=== PATIENT | female | born 1975 | race Caucasian/White ===

== ENCOUNTER 2021-01-06 10:11 | Emergency (ER) | payer MEDICAID, SELFPAY ==
[2021-01-06 10:11] VITALS: BP 162/101; PULSE 91; RESP 18; TEMP 36; O2SAT 100; BMI 41.5
--- NOTE | 2021-01-06 10:29 | CT_ITS ---
STUDY: CTA OF THE BRAIN REASON FOR EXAM: Female, 45 years old. Right sided pain RADIATION DOSAGE (If Supplied By Facility): CTDIvol = ( 28.57 ) mGy, DLP = ( 1310.64 ) mGycm TECHNIQUE: CT angiography was performed with a multi-detector CT scanner. Data acquisition was obtained from the skull base through the vertex following intravenous administration of IV 100mL Isovue-300. MIP images were reconstructed from the axial data set. Post-processing of the angiographic images was performed, with multiplanar reformation and 3D reconstruction. Individualized dose optimization techniques were used for this CT. COMPARISON: None. FINDINGS: Normal bilateral petrous carotid arteries. Normal right cavernous carotid artery with a normal supraclinoid bifurcation. Normal left cavernous carotid artery with a normal supraclinoid bifurcation. Normal right A1 segments of the anterior cerebral artery. Normal left A1 segments of the anterior cerebral artery. Normal intact anterior communicating artery (ACOM). Normal bilateral A2 segments of the anterior cerebral arteries. Normal right M1 and M2 segments of the middle cerebral arteries, with a normal M1 bifurcation. Normal left M1 and M2 segments of the middle cerebral arteries, with a normal M1 bifurcation. Normal right posterior communicating artery (PCOM). Normal left posterior communicating artery (PCOM). Normal bilateral vertebral arteries. Normal basilar artery with a normal basilar bifurcation. The visualized bilateral superior cerebellar (SCA) arteries are normal. Normal bilateral P1, P2 and visualized P3 segments of the posterior cerebral arteries. There is no demonstrated aneurysm of the [place]. There is no demonstrated abnormality of the visualized brain. Small left vertebral artery. CT/CTA Head W/WO Contrast IMPRESSION: Normal [place] without a demonstrated aneurysm or hemodynamically significant stenosis. Electronically Signed: Hebert Cordova MD at 11:09 EST , Service support ,
--- NOTE | 2021-01-06 10:30 | ED.VIS.GEN ---
History of Present Illness Chief Complaint: Dizziness Detail of Chief Complaint: Sharp right-sided head pain Informant: Patient Onset: Weeks Context: Gradual Onset Timing: Intermittent, Lasts - Less than 1 minute Narrative: Patient presents with intermittent episodes of sharp right-sided head pain. She states the symptoms of been ongoing for a month or so. The pain is brief lasting less than 1 minute. She states when the pain occurs she will have some nausea and dizziness that persist for a slight time period. Patient reports being seen at [facility] approximately 2 weeks ago. She had a head CT that she was told had an abnormality but per her report was not given any further follow-up instructions. Patient states she continues to have symptoms and has noted increased frequency. - Past Medical History (1) Anxiety disorder Status: Chronic (2) Essential hypertension Status: Chronic Past Medical History - Allergies and Home Meds Allergies/Adverse Reactions: Allergies egg Allergy (Verified 01/06/21 10:11) Other Primary Care Physician: Denisse Valdez MD [Primary Care Provider] - Prior records reviewed: Yes Lives: Spouse/ Significant Other Smoking Status: Current every day smoker Review of Systems General: Denies: Chills, Fever Eyes: Denies: Visual changes - bilaterally ENT: Denies: Bilateral ear pain Cardiovascular: Denies: Chest pain Respiratory: Denies: Dyspnea, Cough Gastrointestinal: Reports: Nausea. Denies: Abdominal pain, Vomiting, Diarrhea Musculoskeletal: Denies: Swelling, Extremity Pain Neurological: Reports: Headache Psych: Denies: Depression Hematologic: Denies: Easy bruising, Easy bleeding Allergy: Denies: Uticaria Physical Exam Vital Signs/Narrative: Vital Signs Temp Pulse Resp BP Pulse Ox 01/06/21 10:11 96.8 F L 91 18 162/101 H 100 Inital Vital Signs reviewed: Yes General: Well nourished, Well developed Head: Normocephalic ENT: Moist mucous membranes Neck: Supple, - - No C-spine tenderness. Cardiovascular: Regular rate, Regular rhythm Respiratory: No distress, CTA bilaterally Abdomen: Soft, Nontender, Normal bowel sounds Back: Nontender Extremities: Nontender, No edema Skin: Normal color, No rash Neurological: Alert, Oriented x3, Normal Strength, Normal Sensation Psychological: Normal affect Diagnostic/Tx/Re-eval Impressions Head CTA 01/06/21 10:29 IMPRESSION: Normal [place] without a demonstrated aneurysm or hemodynamically significant stenosis. Electronically Signed: Hebert Cordova MD at 11:09 EST , Service support , 01/06/21 10:29 CTA Head W/WO Contrast [CT] Stat Laboratory Results 01/06/21 01/06/21 10:40 10:40 WBC 8.4 RBC 4.69 Hgb 14.5 Hct 41.3 MCV 88.1 MCH 30.9 MCHC 35.1 RDW Std Deviation 43.2 RDW Coeff of Ciro 14.1 Plt Count 196 MPV 10.3 Immature Gran % (Auto) 0.400 Neut % (Auto) 55.7 Lymph % (Auto) 33.8 [place] % (Auto) 7.3 Eos % (Auto) 2.4 Baso % (Auto) 0.4 Absolute Neuts (auto) 4.7 Absolute Lymphs (auto) 2.82 Nucleated RBC % 0 Sodium 139 Potassium 4.2 Chloride 109 H Carbon Dioxide 26.0 Anion Gap 4 L BUN 9 Creatinine 1.01 Estim Creat Clear Calc 64.63 Est GFR (MDRD) Af Amer 77 Est GFR (MDRD) Non-Af 63 BUN/Creatinine Ratio 8.9 L Glucose 106 Calcium 8.8 - Medical Decision Making Patient was given Toradol and prednisone on arrival. CT scan from [place] was reviewed. There is evidence of a 6 mm frontal calcified meningioma. This appeared to be unchanged when compared to a prior study from 2013. Because the patient did not have a CTA, that was obtained on this visit. There is no evidence of aneurysm. I did discuss with the patient that the nature of her pain, sharp, stabbing, quick onset and offset, is more consistent with nerve irritation. We will start her on anti-inflammatories and a steroid taper. I did advise her that if the symptoms continue other medications such as gabapentin or Lyrica may be able to help her. She was encouraged to follow-up with her primary care physician in 1 to 2 weeks. ED Disposition - Plan for ED Patient: Disposition: Home or Assisted Living Diagnosis: Paresthesia, Nerve root irritation Instructions: ED Paraesthesias Prescriptions: Prednisone [Deltasone] 60 mg PO DAILY #15 tab Transmission Status: Pending to [id number] Naproxen [Naprosyn] 500 mg PO BID PRN PRN #20 tab PRN Reason: Pain Score 4-10 Transmission Status: Pending to [id number] Referrals: Denisse Valdez MD [Primary Care Provider] - 1-2 Weeks
[2021-01-06] MEDS: Ketorolac 30 MG/ML Syringe IV (10:42)
[2021-01-06] MEDS: predniSONE 20 MG Tablet 60 MG PO (10:42)
[2021-01-06 10:48] LABS: Absolute Lymphocyte Count 2.82 X10^3/uL (0.83-4.51); Absolute Neutrophil Count 4.7 X10^3/uL (2.0-7.7); Basophil# 0.03 X10^3/uL; Basophil% 0.4 % (0-1); Eosinophils% 2.4 % (0-5); Hematocrit 41.3 % (37-47); Hemoglobin 14.5 g/dL (12.0-15.0); Lymphocyte # 2.82 X10^3/ul (4.0); Lymphocyte % 33.8 % (19-41); Mean Corp Hgb Conc 35.1 g/dL (32-36); Mean Corpuscular Hgb 30.9 pg (27.0-32.0); Mean Corpuscular Volume 88.1 fL (81-99); Mean Platelet Vol. 10.3 fl (6.2-12.0); Monocyte# 0.61 X10^3/uL; Monocyte% 7.3 % (0-10); NRBC Flagged by Analyzer 0 % (0-5); Neutrophil # 4.66 X10^3/uL (2.7-7.7); Neutrophil % 55.7 % (47-70); Platelet Count 196 K/mm3 (150-450); RBC Distribution Width CV 14.1 % (11.6-14.6); RBC Distribution Width SD 43.2 fl (35.1-43.9); Red Blood Count 4.69 M/mm3 (4.2-5.4); White Blood Count 8.4 K/mm3 (4.4-11.0)
[2021-01-06 11:01] LABS: Anion Gap 4 (5-15); BUN 9 mg/dL (7-18); BUN/Creat Ratio 8.9 RATIO (10-20); Calcium,Total 8.8 mg/dL (8.5-10.1); Chloride 109 mmol/L (98-107); Creatinine, Serum 1.01 mg/dL (0.55-1.02); EST Glomerular Filtration Rate 63 mL/min (>60); Est Glom Filt Rate - Afr Amer 77 mL/min (>60); Estimated Creatinine Clearance 64.63 ml/min; Glucose 106 mg/dL (74-106); Potassium 4.2 mmol/L (3.5-5.1); Sodium Level 139 mmol/L (136-145)
[2021-01-06 12:21] VITALS: BP 130/71; PULSE 83; RESP 15; O2SAT 100
== END 2021-01-06 12:21 | disposition home or self-care (01) ==
PROVIDERS: Emergency Provider Emergency Medicine; PCP Family Medicine
DX: R20.2 Paresthesia of skin (principal); I10 Essential (primary) hypertension; F17.200 Nicotine dependence, unspecified, uncomplicated; Z79.899 Other long term (current) drug therapy
CPT/HCPCS: 70496; 80048; 85025; 96374; 99284; Q9967; A4216

== ENCOUNTER → 2022-06-14 | Outpatient (CLI) | payer MEDICAID, SELFPAY ==
[2022-06-20 12:35] LABS: Anti-Histone Abs 0.3 Units (0.0-0.9); Anti-Nuclear Antibody Test Negative (.); Anti-dsDNA Ab 1 IU/mL (0-9)
== END | disposition home or self-care (01) ==
LOC: MTLAB 13:03
PROVIDERS: PCP Family Medicine; Referring Provider Physician Assistant; Visit Provider Physician Assistant
DX: C44.529 Squamous cell carcinoma of skin of other part of trunk (principal); D48.5 Neoplasm of uncertain behavior of skin; L57.8 Other skin changes due to chronic exposure to nonionizing radiation; B36.8 Other specified superficial mycoses; D22.5 Melanocytic nevi of trunk; L85.8 Other specified epidermal thickening; L02.425 Furuncle of right lower limb; L02.426 Furuncle of left lower limb; L02.222 Furuncle of back [any part, except buttock and flank]; L30.9 Dermatitis, unspecified; L71.8 Other rosacea
CPT/HCPCS: 36415; 86038; 86225; 86235

== ENCOUNTER → 2024-03-02 | Outpatient (CLI) | payer MEDICAID, SELFPAY ==
--- NOTE | 2024-03-02 07:04 | MRI_ITS ---
HISTORY: Radiculopathy, left leg and foot numbness. TECHNIQUE: Multiplanar and multisequence MR images of the lumbar spine were obtained without intravenous contrast. 143 images. COMPARISON: Comparison outside CT report dated 02/03/2024. Images not available at time of dictation. FINDINGS: VERTEBRAE: Vertebral body heights maintained. Degenerative bone marrow endplate changes of L5-S1. ALIGNMENT: 9 mm anterolisthesis of L5-S1 with L5 spondylolysis. CONUS: Normal morphology and position of the conus medullaris at L1. INTERVERTEBRAL DISCS: T12-L1: No significant posterior disc protrusion, central canal stenosis, or foraminal narrowing based on the sagittal images. L1-2, L2-3, L3-4: No significant signal abnormality, posterior disc protrusion, central canal stenosis, or foraminal narrowing. L4-5: No significant signal abnormality, posterior disc protrusion, central canal stenosis. Facet arthropathy with minimal narrowing of the bilateral foramina. L5-S1: Mild pseudodisc appearance secondary to the listhesis and facet arthropathy without thickened central canal stenosis. Severe bilateral foraminal narrowing with bilateral L5 nerve root impingement. SOFT TISSUES: Posterior subcutaneous edema. 2.7 cm left pelvic cyst. MRI/Spine Lumbar (Routine) IMPRESSION: L5 spondylolysis with grade 2 spondylolisthesis. Degenerative change of L5-S1 resulting in severe bilateral foraminal narrowing with bilateral nerve root impingement. No significant lumbar spinal canal stenosis. Small left pelvic cyst, likely ovarian in origin. Electronically Signed: Kaila Holden MD at 12:24 EDT ,
== END | disposition home or self-care (01) ==
LOC: MRI 06:29
PROVIDERS: PCP Nurse Practitioner Family; Referring Provider Anesthesiology Pain Medicine; Visit Provider Anesthesiology Pain Medicine
DX: M54.16 Radiculopathy, lumbar region (principal)
CPT/HCPCS: 72148

== ENCOUNTER → 2025-09-29 | Outpatient (CLI) | payer MEDICAID, SELFPAY ==
--- NOTE | 2025-09-29 11:39 | RAD_ITS ---
PROCEDURE: CERV SPINE 2 OR 3 VIEWS 09/29/2025 REASON FOR EXAM: RADICULOPATHY, CERVICAL REGION TECHNIQUE: Procedure Code: RADSPCL Modality: DX Procedure: CERV SPINE 2 OR 3 VIEWS COMPARISON: None FINDINGS: There is mild straightening of the cervical lordosis. Disc spaces and vertebral body heights are generally preserved. Lung apices are clear. Prevertebral soft tissues are within normal limits. RAD/Cerv Spine 2 or 3 Views IMPRESSION: No acute bony abnormality. Mild straightening of the cervical lordosis. Given the history of radiculopathy, consider MRI. Reading [facility]
== END | disposition home or self-care (01) ==
LOC: RAD 11:39
PROVIDERS: PCP Nurse Practitioner Family; Referring Provider Anesthesiology Pain Medicine; Visit Provider Anesthesiology Pain Medicine
DX: M54.12 Radiculopathy, cervical region (principal)
CPT/HCPCS: 72040